=== PATIENT | male | born 1975 | race Hispanic/Latino ===

== ENCOUNTER 2020-12-15 13:07 | Emergency (ER) | payer SELFPAY ==
[2020-12-15 13:24] VITALS: BP 113/72; PULSE 60; RESP 16; TEMP 36.2; O2SAT 97
--- NOTE | 2020-12-15 13:40 | ED.HA ---
HPI - Headache General Chief Complaint: Headache Stated Complaint: headaches Time Seen by Provider: 12/15/20 13:27 History of Present Illness HPI Narrative: Patient presents with concern for headache. Patient notes he had a headache for the past week. Pain started when he was working out in the barn on a hot day. Ever since then his headache is slowly been getting worse and is associated with nausea. Finds it difficult to sleep so he went to come in for evaluation. Subjective fevers at home he denies vomiting, diarrhea, shortness of breath, chest pain, change in vision, focal numbness or weakness Related Data Allergies Allergy/AdvReac Type Severity Reaction Status Date / Time No Known Allergies Allergy Unverified 10/29/11 14:07 Review of Systems Review of Systems: CONSTITUTIONAL: Denies fever, chills, or sweats. EYES: Denies visual changes, redness, or discharge. ENT: Denies rhinorrhea, congestion, sore throat, or otalgia. CARDIOVASCULAR: Denies chest pain, palpitations, or edema. RESPIRATORY: Denies cough or dyspnea. GASTROINTESTINAL: Denies abdominal pain, vomiting, or diarrhea. GENITOURINARY: Denies dysuria or hematuria. SKIN: Denies rash or itching. MUSCULOSKELETAL: Denies back pain, joint pain, or myalgia. NEUROLOGIC: Denies numbness, dizziness, or weakness. PSYCHIATRIC: Denies anxiety or depression. All systems reviewed & are unremarkable except as noted in HPI and below PMFSH Social History Social History Gender identity (if verbalized by the patient): Male Exam Narrative: GENERAL: Well-appearing, well-nourished, and in no acute distress. HEAD: Normocephalic, atraumatic. EYES: PERRLA and EOMI. ENT: Nares clear, no rhinorrhea or epistaxis. Mucous membranes moist. NECK: Supple. No masses. No JVD CHEST: Clear to auscultation. No respiratory distress. No wheezes rales or rhonchi HEART: Regular rate and rhythm. No murmur heard. Normal peripheral pulses. ABDOMEN: Soft, nontender, nondistended, normal active bowel sounds. EXTREMITIES: Normal range of motion. No edema. SKIN: Warm, dry, no rash. NEURO: 5 out of 5 strength in all extremities sensation intact to light touch cranial nerves II through XII are intact alert and oriented x3. PSYCH: Normal mood and affect. Course Reevaluation(s) Reevaluation #1: Patient is resting comfortably reports large improvement in symptoms he feels that he can manage her symptoms at home Date: 12/15/20 Time: 14:47 Vital Signs Vital signs: Vital Signs Temperature 36.2 C L 12/15/20 13:24 Pulse Rate 60 12/15/20 13:24 Respiratory Rate 16 12/15/20 13:24 Blood Pressure 113/72 12/15/20 13:24 Pulse Oximetry 97 12/15/20 13:24 Temperature 36.2 C L 12/15/20 15:35 Pulse Rate 56 L 12/15/20 15:35 Respiratory Rate 18 12/15/20 15:35 Blood Pressure 113/73 12/15/20 15:35 Pulse Oximetry 99 12/15/20 15:35 MDM - Headache MDM Narrative Medical decision making narrative: H&P as above, vss, pt looks clinically well, exam without focal neurological deficits, labs clinically unremarkable additional labs/img considered, symptomatic relief available as needed, on reevaluation pt continues to looks clinically well. Suspect dehydration versus migraine, dns meningitis, encephalitis, severe sepsis. Given improvement plan to tx/monitor as op w/ pcm f/u findings/plan discussed with pt, pt agree/comfortable with plan, return precautions given Lab Data Result diagrams: 12/15/20 14:03 12/15/20 14:03 Labs: Lab Results 12/15/20 12/15/20 12/15/20 Range/Units 14:03 14:03 14:03 WBC 8.9 (4.5-10.0) K/mm3 RBC 5.09 (4.6-6.20) M/mm3 Hgb 15.3 (14.0-18.0) g/dL Hct 45.1 (42.0-52.0) % MCV 88.6 (80-100) fl MCH 30.1 (26-34) pg MCHC 33.9 (32-36) g/dl RDW 12.5 (11.5-14.5) % Plt Count 222 (150-375) k/mm3 MPV 11.1 H (7.4-10.4) fl Immature Gran % (Auto)
[2020-12-15] MEDS: SODIUM CHLORIDE 0.9% IV 2,000 ML 999 ML IV CONT (14:10)
[2020-12-15] MEDS: ACETAMINOPHEN 325 MG TABLET 650 MG PO (14:11)
[2020-12-15 14:15] LABS: Basophils Absolute Auto 0.1 K/mm3 (0.0-0.1); Basophils Percent Auto 0.7 % (0.2-1.2); Eosinophils Absolute Auto 0.4 K/mm3 (0-0.3); Eosinophils Percent Auto 4.5 % (0-4.4); Hematocrit 45.1 % (42.0-52.0); Hemoglobin 15.3 g/dL (14.0-18.0); Immature Granulocyte Absolute 0.04 K/mm3 (0.00-0.031); Immature Granulocyte Percent A 0.4 % (0-0.5); Lymphocytes Absolute Auto 2.35 K/mm3 (0.9-3.2); Lymphocytes Percent Auto 26.3 % (18.3-44.2); Mean Corpuscular HGB Conc 33.9 g/dl (32-36); Mean Corpuscular Hemoglobin 30.1 pg (26-34); Mean Corpuscular Volume 88.6 fl (80-100); Mean Platelet Volume 11.1 fl (7.4-10.4); Monocytes Percent Auto 10.7 % (2.6-8.5); Neutrophils Absolute Auto 5.1 K/mm3 (1.3-6.7); Neutrophils Percent Auto 57.4 % (45.5-73.1); Platelet Count Result 222 k/mm3 (150-375); Red Blood Count 5.09 M/mm3 (4.6-6.20); Red Cell Distribution Width 12.5 % (11.5-14.5); White Blood Count 8.9 K/mm3 (4.5-10.0)
[2020-12-15] MEDS: PROCHLORPERAZINE EDISYLATE 10 MG/2 ML VIAL IV PUSH (14:18)
[2020-12-15] MEDS: KETOROLAC 15 MG/ML VIAL (*BKC) IV PUSH (14:18)
[2020-12-15 14:26] LABS: Alanine Aminotransferase 40 U/L (4-50); Albumin Level 4.4 g/dL (3.5-5.1); Alkaline Phosphatase 74 U/L (38-126); Anion Gap 8 mmol/L (8-16); Aspartate Amino Transferase 33 U/L (17-59); Bilirubin,Total 0.5 mg/dL (0.2-1.3); Blood Urea Nitrogen 14 mg/dL (9-20); Calcium 9.1 mg/dL (8.4-10.2); Carbon Dioxide 22 mmol/L (22-30); Chloride 109 mmol/L (98-107); Creatine Kinase 76 U/L (55-170); Estimated CRCL calculation 104 ml/min; Estimated Glomerular Filt Rate > 60; Glucose 100 mg/dL (65-110); Potassium 4.1 mmol/L (3.4-5.0); Sodium 139 mmol/L (137-145)
[2020-12-15 15:35] VITALS: BP 113/73; PULSE 56; RESP 18; TEMP 36.2; O2SAT 99
[2020-12-15 15:49] LABS: Add Urine Microscopic? NO; Appearance Urine Clear (Clear); Bilirubin Urine Negative (Negative); Blood Urine Negative (Negative); Color Urine Yellow (Yellow); Glucose Urine UA Negative (Negative); Ketones Urine Negative (Negative); Leukocyte Esterase Ur Negative LEU/UL (Negative); Nitrate Urine Negative (Negative); Protein Urine Negative (Negative); Urobilinogen Urine Negative mg/dL (<2.0)
[2020-12-15 15:57] LABS: Specific Grav Ur 1.033 (1.001-1.035)
== END 2020-12-15 15:35 | disposition home or self-care (01) ==
PROVIDERS: Emergency Provider Emergency Medicine
DX: R51.9 Headache, unspecified (principal); R53.83 Other fatigue
CPT/HCPCS: 36415; 80053; 81003; 82550; 85025; 96361; 96374; 96375; 99284; A9270; J0780; J1885; J7030

== ENCOUNTER 2024-06-05 09:28 | Emergency (ER) | payer SELFPAY ==
--- NOTE | ~2024-06-05 | CT_ITS ---
EXAMINATION: CT abdomen pelvis w con DATE: 06/05/2024 10:38 INDICATION: Right upper quadrant abdominal pain. TECHNIQUE: Computed tomography (CT) of the abdomen and pelvis was performed with 100 mL Omnipaque 350 intravenous contrast. Automated exposure control and iterative reconstruction technique were employe d. The dose-length product was 472.55 mGy-cm. COMPARISON: None. FINDINGS: The visualized portions of the lung bases demonstrate mild atelectasis. No pleural effusion . The heart size is normal. No pericardial effusion. There is mild bilateral gynecomastia. The liver, gallbladder, spleen, pancreas, adrenal glands, and left kidney are normal. There is a delayed right- sided contrast nephrogram. There is mild right hydronephrosis and hydroureter. There is a 2 mm stone at right ureterovesicular junction. There are no dilated loops of bowel. The appendix is normal. Ther e are no pathologically enlarged lymph nodes. There is no free intraperitoneal fluid. There is mild l umbar spondylosis. IMPRESSION: 1. 2 mm stone at right ureterovesicular junction with mild right hydronephrosis and hydroureter. Reviewed, dictated and finalized at location A. HTS AND MEASURES INSPECTOR
[2024-06-05 09:30] VITALS: BP 110/52; PULSE 90; RESP 16; TEMP 37.2; O2SAT 98
[2024-06-05 09:56] LABS: Basophils Percent Auto 0.2 % (0.2-1.2); Hematocrit 45.1 % (42.0-52.0); Hemoglobin 15.7 g/dL (14.0-18.0); Immature Granulocyte Absolute 0.09 K/mm3 (0.00-0.031); Immature Granulocyte Percent A 0.7 % (0-0.5); Lymphocytes Absolute Auto 0.88 K/mm3 (0.9-3.2); Lymphocytes Percent Auto 6.9 % (18.3-44.2); Mean Corpuscular HGB Conc 34.8 g/dl (32-36); Mean Corpuscular Hemoglobin 30.6 pg (26-34); Mean Corpuscular Volume 87.9 fl (80-100); Mean Platelet Volume 10.4 fl (7.4-10.4); Monocytes Absolute Auto 1.5 K/mm3 (0.1-0.6); Neutrophils Absolute Auto 10.2 K/mm3 (1.3-6.7); Neutrophils Percent Auto 80.2 % (45.5-73.1); Platelet Count Result 207 k/mm3 (150-375); Red Blood Count 5.13 M/mm3 (4.6-6.20); Red Cell Distribution Width 12.8 % (11.5-14.5); White Blood Count 12.7 K/mm3 (4.5-10.0)
--- NOTE | 2024-06-05 10:00 | ED_ITS ---
HPI - Abdominal Pain General Chief Complaint: Abdominal Pain Stated Complaint: RUQ ABD PAIN [id number] Time Seen by Provider: 06/05/24 09:58 Source: patient and family History of Present Illness HPI narrative: 48 years old male came to the ED complaining of right flank pain radiating to right testicle started 2 weeks ago, intermittent associated with nausea and vomiting lately been notes blood in the urine and pain during urination.. He denies any fever or chills or history of abdominal surgery or history of kidney stone. Patient does not take medicine at home. Related Data Allergies Allergy/AdvReac Type Severity Reaction Status Date / Time No Known Allergies Allergy Verified 06/05/24 09:29 Review of Systems 2 Review of Systems: All systems reviewed & are unremarkable except as noted in HPI and below PMFSH Social History Social History Gender identity (if verbalized by the patient): Male Exam 2 Narrative: General appearance: Well-developed, well-nourished, looks in pain Skin: Normal color Head: Normocephalic, nontraumatic Eyes: Clear conjunctiva ENT: Oropharynx normal, ears normal, nose normal Neck: Supple, nontender Chest and respiratory: Airway patent, no respiratory distress, no accessory muscle use Heart: Regular rate/rhythm Abdomen: Right flank tenderness, right lower quadrant tenderness, no guarding or rebound, quite bowel sounds Vascular: Normal peripheral pulses, normal capillary refill. 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 is normal as tested, no gross motor deficit Course Consultations Consultation #1: DR KENNEY DISCHARGED ON CIPRO, OUTPATIENT FOLLOW-UP Date: 06/05/24 Time: 13:13 Vital Signs Vital signs: Vital Signs Temperature 37.2 C 06/05/24 09:30 Pulse Rate 90 06/05/24 09:30 Respiratory Rate 16 06/05/24 09:30 Blood Pressure 110/52 L 06/05/24 09:30 Pulse Oximetry 98 06/05/24 09:30 Temperature 36.6 C 06/05/24 11:29 Pulse Rate 60 06/05/24 11:29 Respiratory Rate 18 06/05/24 11:29 Blood Pressure 108/82 06/05/24 11:29 Pulse Oximetry 99 06/05/24 11:29 MDM - Abdominal Pain MDM Narrative Medical decision making narrative: Patient presents with right flank pain with radiation to the right testicle and blood in urine Vital signs stable Physical examination showing patient in pain, restless, tenderness right flank right lower quadrant Differential diagnosis include kidney stone, urinary tract infection, appendicitis, cholecystitis, constipation, colitis, diverticulitis Blood workup today includes CBC, CMP, lipase showed WBC of 12.7, otherwise insignificant abnormality Urinalysis showed evidence of infection CT abdomen and pelvis with IV contrast showed 2 mm stone at the right ureterovesical junction with mild right hydronephrosis and hydroureter Patient received 1 L of normal saline, Flomax, Dilaudid, Zofran, Toradol Lab Data 06/05/24 09:48 06/05/24 09:48 Labs: Lab Results 06/05/24 Range/Units 09:48 WBC 12.7 H (4.5-10.0) K/mm3 RBC 5.13 (4.6-6.20) M/mm3 Hgb 15.7 (14.0-18.0) g/dL Hct 45.1 (42.0-52.0) % MCV 87.9 (80-100) fl MCH 30.6 (26-34) pg MCHC 34.8 (32-36) g/dl RDW 12.8 (11.5-14.5) % Plt Count 207 (150-375) k/mm3 MPV 10.4 (7.4-10.4) fl Immature Gran % (Auto) 0.7 H (0-0.5) % Neut % (Auto) 80.2 H (45.5-73.1) % Lymph % (Auto) 6.9 L (18.3-44.2) % [place] % (Auto) 12.0 H (2.6-8.5) % Eos % (Auto) 0.0 (0-4.4) % Baso % (Auto) 0.2 (0.2-1.2) % Lymph # (Auto) 0.88 L (0.9-3.2) K/mm3 [place] # (Auto) 1.5 H (0.1-0.6) K/mm3 Eos # (Auto) 0.0 (0-0.3) K/mm3 Baso # (Auto) 0.0 (0.0-0.1) K/mm3 Abs Immat Gran (auto) 0.09 H (0.00-0.031) K/mm3 Absolute Neuts (auto) 10.2 H (1.3-6.7) K/mm3 Absolute Nucleated RBC 0.000 (0.0-0.012) K/mm3 Nucleated RBC % 0.0 (0.0-0.2) % Sodium 137 (137-145) mmol/L Potassium 3.8 (3.4-5.0) mmol/L Chloride 103 (98-107) mmol/L Carbon Dioxide 20 L (22-30) mmol/L Anion Gap 14 H (4-12) mmol/L BUN 11 (9-20) mg/dL Creatinine 1.00 (0.7-1.3) mg/dL Estim Creat Clear Calc 72 ml/min Estimated GFR > 60 (59 - ) Glucose 122 H (65-110) mg/dL Calcium 9.1 (8.4-10.2) mg/dL Total Bilirubin 1.2 (0.2-1.3) mg/dL AST 23 (17-59) U/L ALT 34 (6-50) U/L Alkaline Phosphatase 67 (38-126) U/L Total Protein 8.0 (6.3-8.2) g/dL Albumin 4.4 (3.5-5.1) g/dL Lipase 189 (23-300) U/L Urine Color Dark yellow (Yellow) Urine Appearance Cloudy H (Clear) Urine pH 5.5 (5.0-9.0) Ur Specific [place] 1.028 (1.001-1.035) Urine Protein 2+ H (Negative) mg/dL Urine Glucose (UA) Negative (Negative) mg/dL Urine Ketones Trace H (Negative) mg/dL Ur Blood (Man) 3+ H (Negative) Urine Nitrate Positive H (Negative) Urine Bilirubin 1+ H (Negative) Urine Urobilinogen 1.0 (<2.0) mg/dL Add Ur Microanalysis Reviewed Leukocyte Esterase Rfl 2+ H (Negative) AFUA/UL Urine RBC >100 H (0-2) /hpf Urine WBC >100 H (0-3) /hpf Ur Squamous Epith Cells None seen (Few) /hpf Urine Bacteria Rare /hpf Urine Casts 6-10 Imaging Data Radiologist's impression: ITS Impressions Abdomen/Pelvis CT 06/05/24 10:39 IMPRESSION: 1. 2 mm stone at right ureterovesicular junction with mild right hydronephrosis and hydroureter. Discharge Plan Discharge Clinical Impression: Kidney stone, Urinary tract infection Patient Disposition: Home, Self-Care Condition: Improved Instructions: Kidney Stones (ED), Urinary Tract Infection in Men (DC), How to Strain Your Urine (ED) Additional Instructions: Return if symptoms are worsening , call DR KENNEY for appointment, take Tylenol as as needed for aches and pain, continue home medications. Patient Language: Slovenian Prescriptions: New hydrocodone-acetaminophen 5-325 mg tablet 1 tablet PO Q6H Qty: 20 0RF ondansetron HCl 4 mg tablet 4 mg PO Q4H Qty: 10 0RF Rx Instructions: 1st dose 1-2 hr before radiation tamsulosin [Flomax] 0.4 mg capsule 0.4 mg PO DAILY Qty: 10 0RF ciprofloxacin HCl [Cipro] 500 mg tablet 500 mg PO Q12H Qty: 20 0RF No Action ondansetron 4 mg tablet,disintegrating 4 mg PO Q8H PRN (Reason: nausea and vomiting) Qty: 10 0RF Follow-up/Referrals: Ernie Kenney MD [Physician] - 06/07/24 PHYSICIAN,INFRASTRUCTURE ANALYST [Non-Staff] -
[2024-06-05 10:11] LABS: Alanine Aminotransferase 34 U/L (6-50); Albumin Level 4.4 g/dL (3.5-5.1); Alkaline Phosphatase 67 U/L (38-126); Anion Gap 14 mmol/L (4-12); Aspartate Amino Transferase 23 U/L (17-59); Bilirubin,Total 1.2 mg/dL (0.2-1.3); Blood Urea Nitrogen 11 mg/dL (9-20); Calcium 9.1 mg/dL (8.4-10.2); Carbon Dioxide 20 mmol/L (22-30); Chloride 103 mmol/L (98-107); Estimated CRCL calculation 72 ml/min; Estimated Glomerular Filt Rate > 60; Glucose 122 mg/dL (65-110); Lipase 189 U/L (23-300); Potassium 3.8 mmol/L (3.4-5.0); Sodium 137 mmol/L (137-145)
[2024-06-05] MEDS: ONDANSETRON INJ 4 MG/2 ML VIAL IV PUSH (10:19)
[2024-06-05] MEDS: SODIUM CHLORIDE 0.9% IV 1,000 ML 999 ML IV CONT (10:20)
[2024-06-05] MEDS: HYDROmorphone HCL INJ (*CRX) 1 MG/ML SYR 0.5 MG IV PUSH (10:20)
[2024-06-05 10:26] LABS: Add Urine Microscopic? YES; Appearance Urine Cloudy (Clear); Bacteria Urine Rare /hpf; Bilirubin Urine 1+ (Negative); Blood Urine 3+ (Negative); Color Urine Dark Yellow (Yellow); Glucose Urine UA Negative (Negative); Ketones Urine Trace mg/dL (Negative); Leukocyte Esterase Ur 2+ LEU/UL (Negative); Need Manual Microscopic Reviewed; Nitrate Urine Positive (Negative); Protein Urine 2+ mg/dL (Negative); RBC Urine >100 /hpf (0-2); Specific Grav Ur 1.028 (1.001-1.035); Squamous Epithelial Cell Urine None Seen /hpf (Few); WBC Urine >100 /hpf (0-3); pH Urine 5.5 (5.0-9.0)
[2024-06-05 11:29] VITALS: BP 108/82; PULSE 60; RESP 18; TEMP 36.6; O2SAT 99
[2024-06-05] MEDS: TAMSULOSIN HCL 0.4 MG CAPSULE PO (12:49)
[2024-06-05] MEDS: KETOROLAC 30 MG/ML VIAL (*BKC) IV PUSH (12:49)
[2024-06-05 13:27] VITALS: BP 108/69; PULSE 65; RESP 18; O2SAT 98
== END 2024-06-05 13:35 | disposition home or self-care (01) ==
PROVIDERS: Emergency Provider Emergency Medicine
DX: N20.0 Calculus of kidney (principal); N39.0 Urinary tract infection, site not specified
CPT/HCPCS: 36415; 74177; 80053; 81001; 83690; 85025; 87086; 87186; 96361; 96365; 96375; 99284; A9270; J0696; J1171; J1885; J2405; J7030; Q9967